=== PATIENT | male | born 2000 | race Two or more races ===

== ENCOUNTER → 2024-02-24 14:41 | Outpatient (BNVA) | payer OTHER, SELFPAY | PROVIDERS: Visit Provider Physician Assistant Surgical ==

== ENCOUNTER 2024-08-16 12:37 | Emergency (ER) | payer OTHER, SELFPAY ==
--- NOTE | ~2024-08-16 | XR_ITS ---
CLINICAL HISTORY: twisted knee 4 view right knee Comparison: None Findings: Bones intact. No dislocations. No significant arthritic change or erosions. No joint effusion. No radiopaque foreign body. IMPRESSION: 1. No acute findings. This document has been electronically signed by: Emily Traore MD on 08/16/2024 13:29:54
[2024-08-16 12:41] VITALS: BP 122/63; PULSE 66; RESP 18; TEMP 36.5; O2SAT 97; BMI 40.9
--- NOTE | 2024-08-16 12:46 | ED_ITS ---
HPI - Extremity Injury (Lower) General Chief Complaint: Extremity Problem Stated Complaint: R knee pain Time Seen by Provider: 08/16/24 13:37 Source: patient and data base administrator (equatorial guinean) Mode of arrival: ambulatory Limitations: language barrier (equatorial guinean) History of Present Illness ED Provider: DEISY HILL PA-C HPI Narrative: 24 year old South African speaking male with no significant pmhx presents to the ED today for evaluation of right knee pain x3 days. States he was ambulating and tripped, causing his right knee to twist. Reports pain to the medial aspect of his right knee since this time. Pain is worse with ambulating. He has not trialed any OTC pain medications. Denies numbness/tingling/weakness of the RLE. area safety manager utilized throughout visit to communicate with patient. Related Data Previous Rx's ?Medication ?Instructions ?Recorded acetaminophen 325 mg tablet 650 mg (2 x 325 mg) PO Q4-6H PRN 08/16/24 (Tylenol) pain (scale score 1-3) #30 tabs ibuprofen 600 mg tablet 600 mg PO Q8H PRN pain (scale 08/16/24 score 1-3) #30 tabs Allergies Allergy/AdvReac Type Severity Reaction Status Date / Time No Known Allergies Allergy Verified 08/16/24 12:43 Review of Systems Review of Systems: Constitutional: No fever, chills, fatigue, night sweats, weight changes ENT/Mouth: No ear pain, hearing loss, nasal congestion, sinus pain, rhinorrhea, sore throat Eyes: No eye pain, swelling, redness, vision changes, discharge Cardio: No chest pain, palpitations, [place], orthopnea, peripheral edema Pulm: No SOB, cough, sputum, wheezing, dyspnea, hemoptysis GI: No nausea, vomiting, hematemesis, abdominal pain, diarrhea, constipation, hematochezia, melena : No irregular bleeding, dysuria, frequency, urgency, hesitancy, hematuria, flank pain, urinary flow changes, urinary incontinence or retention MSK: No back pain, neck pain, joint pain, myalgias, +right knee pain Skin: No lesions, rashes Neuro: No weakness, numbness, paresthesias, LOC, dizziness, headache Psych: No anxiety/panic, depression, SI/HI, AH/VH All other systems reviewed and are negative. [facility] Past Medical History Attestation statement: The following information was validated with the patient. Source: old records reviewed and nursing notes reviewed Surgical History Hx of appendectomy Family History Family History Mother No known health problems Father No known health problems Social History Social History Alcohol intake: current Alcohol intake frequency: a few times a month Substance Use Type: Marijuana Physical Exam Vital Signs: Vital Signs: Last Vital Signs Temp 97.7 F 08/16/24 12:41 Pulse 66 08/16/24 12:41 Resp 18 08/16/24 12:41 BP 122/63 08/16/24 12:41 Pulse Ox 97 08/16/24 12:41 O2 Del Method Room Air 08/16/24 12:41 BMI result Body Mass Index 40.9 Vital signs stable General: Well appearing, in no acute distress. Skin: Warm, dry, intact. No rashes or lesions. Head: Normocephalic, atraumatic. EENT: Hearing is intact b/l. Conjunctiva clear. PERRLA. EOM intact. Moist mucous membranes.? Cardiac: Chest wall symmetric. RRR Lungs: Normal respiratory effort without accessory muscle use. CTA bilaterally. ? Back: No midline spinous or paraspinal tenderness. No step off deformity. Ext: +right knee with minimal swelling noted to medial aspect. Tender to palpation without palpable deformity. No overlying erythema. No palpable warmth. Able to flex and extend the right knee. Minimal pain on extension. 2+ DP/PT pulse. Neuro: AOx3. Normal speech. Strength 5/5 intact throughout.Sensation intact to light touch. NV intact distally. Ambulating with slight limping gait. Psych: Appropriate mood and affect. Responds appropriately to questions. Course Course Course Narrative: This is a Rapid Medical Examination (RME) performed by [place] Hill PA-C in triage. Full HPI, ROS, assessment and treatment plan per primary provider in the Main ED. 24 yo male here w/ right knee pain s/p twisting injury 3 days ago. 9/10 pain. no radiation. able to ambulate/ bear weight on RLE. no OTC pain meds. Plan: xr, tylenol given Reevaluation(s) Reevaluation #1: 1356 --patient reports improvement in pain since receiving Tylenol. xray right knee does not demonstrate fracture or dislocation. concern for sprain. patient placed in knee immobilizer and provided w/ crutches. advised to follow up with pcp/ ortho. motrin/ tylenol sent to pharmacy for pain control. Patient has remained stable throughout ED visit today. Discussed worrisome signs and symptoms and when to return to the ED. All questions answered at this time. Patient is agreeable with disposition and stable for discharge. Medications Administered Discontinued Medications Generic Name Dose Route Start Last Admin Trade Name Freq PRN Reason Stop Dose Admin Acetaminophen 650 mg 08/16/24 12:45 08/16/24 12:48 Acetaminophen 325 Mg Tablet PO 08/16/24 12:46 650 mg ONCE ONE Administration Medical Decision Making Medical Decision Making MDM Narrative: 24 year old [place] African speaking male with no significant pmhx presents to the ED today for evaluation of right knee pain x3 days. Vital signs stable. Afebrile. Exam significant for right knee with minimal swelling noted to medial aspect. Tender to palpation without palpable deformity. No overlying erythema. No palpable warmth. Able to flex and extend the right knee. Minimal pain on extension. 2+ DP/PT pulse. ambulating w/ slight limping gait. Differential diagnosis includes fracture, arthritis, MSK sprain/strain. Presentation not consistent with gout, pseudogout, Lyme arthritis, septic joint. Unlikely neurovascular compromise, threat to limb, compartment syndrome. Plan for x-ray and re-evaluation. Tylenol given for pain control. Differential Diagnosis Differential Diagnoses: The differential diagnosis associated with the presentation includes as above. Admission/Observation Not indicated. Independent Interpretation I performed an independent interpretation of an: Plain X-Ray Interpretation: xr right knee without fracture Radiology Impression Discussion of test interpretation with radiology: I have reviewed the radiologist's reading. Radiologist Impression: Ordering Physician: Deisy Hill Date of Service: 08/16/24 Procedure(s): XR knee RT 4V Accession Number(s): [id number] cc: Physician,None ; Deisy iHll~ CLINICAL HISTORY: twisted knee 4 view right knee Comparison: None Findings: Bones intact. No dislocations. No significant arthritic change or erosions. No joint effusion. No radiopaque foreign body. IMPRESSION: 1. No acute findings. This document has been electronically signed by: Emily Traore MD on 08/16/2024 13:29:54 Prescription Management I considered prescription management with: Pain Medication Social Determinants Patient?s care significantly limited by Social Determinants of Health including: Other Social Determinant of Health Procedures Orthopedic Splinting/Casting Injury #1: Side: right Lower Extremity Injury Location: knee Lower Extremity Immobilizer: knee immobilizer Other Orthopedic Equipment: crutches Critical Care Time Critical Care Time Critical Care Time: No Discharge Plan Discharge Clinical Impression: Right knee sprain Patient Disposition: Home, Self-Care Instructions: Knee Sprain (ED), Crutch Instructions (ED), R.I.C.E. Treatment (ED) Additional Instructions: You were evaluated in the ED today for right knee pain. Your x-rays do not demonstrate fracture. You likely sprained the knee. You have been provided with a knee immobilizer and crutches. You may bear weight on the knee as tolerated. I recommend you take 600mg ibuprofen every 6 hours or Tylenol 650mg every 6 hours as needed for pain. If needed, you can alternate these medications so that you take one medication every 3 hours. For example, at noon take ibuprofen, then at 3pm take Tylenol, then at 6pm take ibuprofen. Follow-up with your primary care provider in 1-2 weeks. You may also follow-up with orthopedic doctor. You have been provided with a referral. Call them to establish care. They will not call you. Return with new or worsening symptoms. In the case of an emergency call 911. Prescriptions: New ibuprofen 600 mg tablet 600 mg PO Q8H PRN (Reason: pain (scale score 1-3)) Qty: 30 0RF acetaminophen [Tylenol] 325 mg tablet 650 mg PO Q4-6H PRN (Reason: pain (scale score 1-3)) Qty: 30 0RF Referrals: [facility] Family Medicine [Provider Group] [facility] Primary Care, [place] [Provider Group] [facility] Primary Care,[place] [Provider Group] [facility] Orthopedic Surgeons [Provider Group] Stand Alone Forms: Work/School Release Print Language: South African
[2024-08-16] MEDS: Acetaminophen 325 MG TABLET 650 MG PO (12:48)
[2024-08-16 13:55] VITALS: BP 122/63; PULSE 66; RESP 18; TEMP 36.5; O2SAT 97
== END 2024-08-16 13:59 | disposition home or self-care (01) ==
LOC: HO.ED 13:58
PROVIDERS: Emergency Provider Emergency Medicine
DX: S83.91XA Sprain of unspecified site of right knee, initial encounter (principal); M25.571 Pain in right ankle and joints of right foot; X50.1XXA Overexertion from prolonged static or awkward postures, initial encounter; Y93.89 Activity, other specified; Y92.89 Other specified places as the place of occurrence of the external cause; Y99.8 Other external cause status
CPT/HCPCS: 29515; 73564; 99283; 99284

== ENCOUNTER → 2024-08-16 12:45 | Outpatient (BNV) | payer OTHER, SELFPAY | PROVIDERS: Emergency Provider Emergency Medicine; Visit Provider Radiology Diagnostic Radiology | DX: M25.561 Pain in right knee (principal) | CPT/HCPCS: 73564 ==

== ENCOUNTER 2024-09-10 13:56 | Outpatient (REF) | payer OTHER, SELFPAY | END 2024-09-10 13:57 | disposition home or self-care (01) | LOC: HO.HOSX 13:56 | PROVIDERS: Visit Provider Physician Assistant | DX: Z13.89 Encounter for screening for other disorder (principal) ==